=== PATIENT | male | born 1975 | race African-American/Black ===

== ENCOUNTER → 2016-07-18 | Outpatient (CLI) | payer OTHER ==
[2014-11-23 11:47] VITALS: BP 124/80
[~2016-07-18] MED LIST: AMLO10TA2 PO; INSU100V10 IJ; INSU100V8 SQ; LEVE500T56 PO; LEVE500T6 PO; METF10002 PO; OMEG500C PO; RANI150T2 PO
--- NOTE | 2016-07-18 15:15 | KCIC ---
PROCEDURE Three-view right foot dated 07/18/2016. HISTORY Right 2nd injury 1 month ago pain and swelling. TECHNIQUE Three views obtained. COMPARISON None. FINDINGS Bony alignment is anatomic. No displaced fracture. No acute osseous or articular abnormality. Mild degenerate changes of the interphalangeal joints and Lisfranc joints. IMPRESSION No acute radiographic abnormality. Electronically signed by: Juan R Lund (Jul 18, 2016 15:13:55)
== END | disposition home or self-care (01) ==
LOC: KCIC 14:34
PROVIDERS: ATTEND Physician Assistant
DX: S99.921D Unspecified injury of right foot, subsequent encounter (principal); X58.XXXD Exposure to other specified factors, subsequent encounter
CPT/HCPCS: 73660

== ENCOUNTER → 2016-09-18 | Outpatient (CLI) | payer OTHER ==
[2014-11-23 11:47] VITALS: BP 124/80
[~2016-09-18] MED LIST changes: -INSU100V10 IJ; +INSU100V11 IJ; +METF-620 PO; -METF10002 PO
--- NOTE | 2016-09-28 13:03 | PDOC4 ---
PROCEDURE Procedure POLYSOMNOGRAPHY REPORT Report Type : Split night Mr. Milton is 41 years old who weighs 285 pounds with a BMI of 43. Patient underwent split night study at [facility] sleep lab on 09/18/16. During the night of the study patient spent 468 minutes in bed and slept for 403 minutes with a sleep efficiency of 86%. Sleep latency was 8 minutes with a REM latency of 94 minutes. Overall sleep architecture showed increased stage I and stage II sleep, normal slow-wave sleep and normal REM sleep. During the initial diagnostic portion of the study patient's slept for 234 minutes. During this time there were 1 obstructive apnea, 8 mixed apneas, and no central apneas. Patient had 79 hypopneas. Patient's AHI for the night was 23 per hour during the diagnostic portion. AHI was 28 per hour in supine sleep and 40 per hour in rem sleep. EKG monitoring revealed average heart rate of 85 bpm. Normal sinus rhythm. No sustained arrhythmias were observed. Review of nocturnal oximetry study revealed a mean oxygen saturation of 94% with a lowest of 85%. Only 2.5% of the time oxygen saturation remained less than 90%. PLMS were not seen. Patient met the criteria for CPAP initiation. It was a started at 5 cm water and titrated up to 12 cm water. At the final pressure patient had 46 minutes of sleep. Supine as well as REM sleep was observed. AHI was reduced to 0 per hour and oxygen saturations remained above 90%. Patient used medium size nasal pillows. IMPRESSION 1. Moderate sleep apnea hypopnea syndrome with worsening during REM sleep. Total AHI 23 per hour with a REM AHI of 40 per hour 2. Mild nocturnal hypoxia. 3. No clinically significant PLM seen. RECOMMENDATIONS 1. CPAP at 12 cm water completely eliminated patient's sleep apnea and should be used on a nightly basis. 2. Follow up in 4-6 weeks to assess compliance with CPAP and to document clinical improvement. 3. Weight loss is strongly advised. 4. Caution regarding driving until symptoms of sleep apnea have resolved with the use of CPAP 5. Avoid central nervous system depressants LLOYD ANN MD Sep 28, 2016 13:03
== END | disposition home or self-care (01) ==
LOC: SLPLAB 18:25
PROVIDERS: ATTEND Physician Assistant
DX: G47.33 Obstructive sleep apnea (adult) (pediatric) (principal)
CPT/HCPCS: 95810

== ENCOUNTER → 2017-11-05 | Emergency (ER) | payer OTHER ==
[2017-11-05] MEDS: levETIRAcetam 500 MG TABLET PO (18:00)
[2017-11-05 18:29] LABS: POC GLUCOSE 135 mg/dL (70-99)
== END ==
LOC: ER 16:54
DX: R56.9 Unspecified convulsions (principal); G40.909 Epilepsy, unspecified, not intractable, without status epilepticus; E11.9 Type 2 diabetes mellitus without complications; Z88.5 Allergy status to narcotic agent
CPT/HCPCS: 82962; 93005; 99285-25

== ENCOUNTER 2017-11-15 12:33 | Emergency (ER) | payer OTHER ==
[~2017-11-15] VITALS: Ht 177.8 cm; Wt 123.8 kg
[~2017-11-15 12:33] MED LIST changes: -METF-620 PO; +METF10003 PO
[2017-11-15 13:00] VITALS: BP 140/83
--- NOTE | 2017-11-15 14:08 | RAD ---
EXAM: PA, oblique and lateral views of the left hand DATE: 11/15/2017 1:19 PM INDICATION: PT STATES HE INJURED LT HAND 2 WKS AGO AND WAS DX WITH LT HAND FX AT [facility]. C/O INCREASED PAIN TO LT HAND, HAS NOT FOLLOWED UP WITH ORTHO COMPARISON: No Prior FINDINGS/ IMPRESSION: Diffuse soft tissue swelling is seen about the level of metacarpals and base of the fingers. No discrete displaced fracture is convincingly identified. Electronically signed by: Jason Okeefe MD (11/15/2017 2:04 PM) [facility]
--- NOTE | 2017-11-15 14:15 | PHYS DOC ---
Past Medical History Past Medical History: Diabetes-Type II, High Cholesterol, Hypertension, Seizure , Other Additional Past Medical Histor: epilepsy Past Surgical History: Tonsillectomy, Other Additional Past Surgical Histo: "head surgery"nos-metal plates,kidney stents, nasal bone removed,L)ear Alcohol Use: None Drug Use: None Adult General Chief Complaint Chief Complaint: HAND PROBLEM HPI HPI Patient is a 42 year old [f__sex] who presents with [] Review of Systems Review of Systems Constitutional: Denies fever or chills [] Eyes: Denies change in visual acuity, redness, or eye pain [] HENT: Denies nasal congestion or sore throat [] Respiratory: Denies cough or shortness of breath [] Cardiovascular: No additional information not addressed in HPI [] GI: Denies abdominal pain, nausea, vomiting, bloody stools or diarrhea [] : Denies dysuria or hematuria [] Musculoskeletal: Denies back pain or joint pain [] Integument: Denies rash or skin lesions [] Neurologic: Denies headache, focal weakness or sensory changes [] Endocrine: Denies polyuria or polydipsia [] All other systems were reviewed and found to be within normal limits, except as documented in this note. Allergies Allergies Allergies Coded Allergies Type Severity Reaction Last Updated Verified codeine Allergy Intermediate hives 06/13/13 Yes morphine Allergy Intermediate hives 06/13/13 Yes Physical Exam Physical Exam Constitutional: Well developed, well nourished, no acute distress, non-toxic appearance. [] HENT: Normocephalic, atraumatic, bilateral external ears normal, oropharynx moist, no oral exudates, nose normal. [] Eyes: PERRLA, EOMI, conjunctiva normal, no discharge. [] Neck: Normal range of motion, no tenderness, supple, no stridor. [] Cardiovascular:Heart rate regular rhythm, no murmur [] Lungs & Thorax: Bilateral breath sounds clear to auscultation [] Abdomen: Bowel sounds normal, soft, no tenderness, no masses, no pulsatile masses. [] Skin: Warm, dry, no erythema, no rash. [] Back: No tenderness, no CVA tenderness. [] Extremities: No tenderness, no cyanosis, no clubbing, ROM intact, no edema. [] Neurologic: Alert and oriented X 3, normal motor function, normal sensory function, no focal deficits noted. [] Psychologic: Affect normal, judgement normal, mood normal. [] Current Patient Data Vital Signs Vital Signs Date Time Temp Pulse Resp B/P (MAP) Pulse Ox O2 Delivery O2 Flow Rate FiO2 11/15/17 13:00 98.9 82 16 140/83 (102) 100 Room Air 98.9 EKG EKG [] Radiology/Procedures Radiology/Procedures [] Course & Med Decision Making Course & Med Decision Making Pertinent Labs and Imaging studies reviewed. (See chart for details) [] Dragon Disclaimer Dragon Disclaimer This electronic medical record was generated, in whole or in part, using a voice recognition dictation system. Departure Departure Impression: Primary Impression: Hand pain Disposition: HOME, SELF-CARE Condition: STABLE Referrals: JOSELITO GOODWIN MD (PCP) Patient Instructions: Cast or Splint Care, RICE - Routine Care for Injuries Additional Instructions: RICE the extremity. You may take ibuprofen or Tylenol for pain. Keep your follow -up appointment with orthopedics. We did not visualize a fracture on your x-ray here today. You may use the splint for comfort but do not overtighten it. If worsening please return to the emergency department. DANIEL DEL CID APRN Nov 15, 2017 14:15
== END 2017-11-15 14:27 | disposition home or self-care (01) ==
LOC: ER 12:33
DX: M79.642 Pain in left hand (principal); E11.9 Type 2 diabetes mellitus without complications; E78.00 Pure hypercholesterolemia, unspecified; I10 Essential (primary) hypertension; Z88.5 Allergy status to narcotic agent; Z90.89 Acquired absence of other organs
CPT/HCPCS: 29125; 73130; 99284